=== PATIENT | male | born 1965 | race Caucasian/White ===

== ENCOUNTER 2020-03-12 08:25 | Emergency (ER) | payer MEDICARE, OTHER ==
[~2020-03-12] VITALS: Ht 182.9 cm; Wt 99.8 kg
[~2020-03-12 08:25] MED LIST: ARIP5TAB10 PO; DIAZ5VIA3 IM; DIPH25ST4 PO; DULO20CA PO; EMTR1TAB6 PO; MORP1DIS IM; PREG25CA PO; [UNRECOGNIZED DRUG - CODE] SQ
--- NOTE | 2020-03-12 08:42 | NUR ---
PT TO ER BED 07. ANXIOUS, C/O NOT ABLE TO SLEEP AT NIGHT. STATES WAS RECENTLY HOMELESS. PT DENIES ANY PAIN SAL[employer]ENT[employer]IVE [employer] FURNITURE. PT DENIES BEING DEPRESSED OR SUICIDAL. PLACED ON MONITOR. STABLE VITALS. WILL CONTINUE TO MONITOR.
--- NOTE | 2020-03-12 09:30 | NUR ---
NORA SAMS CALLED FOR EVAL,HOMELESS
--- NOTE | 2020-03-12 11:08 | NUR ---
ASSUMED CARE OF PT
--- NOTE | 2020-03-12 11:15 | NUR ---
tap card provided
--- NOTE | 2020-03-12 11:17 | NUR ---
Patient given written and verbal discharge instructions. Patient verbalizes understanding of instructions. Patient is ambulatory with steady gait. Refuses offer of group home placement. Patient given list of available shelters in surrounding area. Name band removed, in proper clothing upon discharge, all belongings with patient upon discharge
[2020-03-12 11:18] VITALS: BP 132/87
== END 2020-03-12 11:18 | disposition home or self-care (01) ==
LOC: ER 08:27
DX: Z00.00 Encounter for general adult medical examination without abnormal findings (principal); M79.7 Fibromyalgia; I50.9 Heart failure, unspecified; E11.9 Type 2 diabetes mellitus without complications; F32.9 Major depressive disorder, single episode, unspecified; F29 Unspecified psychosis not due to a substance or known physiological condition; F43.10 Post-traumatic stress disorder, unspecified; Z85.830 Personal history of malignant neoplasm of bone; Z90.89 Acquired absence of other organs; Z90.49 Acquired absence of other specified parts of digestive tract; Z88.8 Allergy status to other drugs, medicaments and biological substances; Z88.1 Allergy status to other antibiotic agents; Z88.6 Allergy status to analgesic agent; Z91.018 Allergy to other foods; Z88.5 Allergy status to narcotic agent; Z91.011 Allergy to milk products; Z59.0 Homelessness